=== PATIENT | female | born 1995 | race Caucasian/White ===

== ENCOUNTER 2022-02-03 13:25 | Emergency (ER) | payer BC, SELFPAY ==
[2022-02-03 13:26] VITALS: BP 124/64; PULSE 57; RESP 16; TEMP 36.6; O2SAT 100; BMI 22.2
[2022-02-03 14:07] LABS: Bacteria 0 SEEN /hpf (None Seen); Mucous, Urine 0 SEEN /hpf (<or=2+); Red Blood Cells-Urine 0 SEEN /hpf (0-5); Squamous Epithelial Cells - UA 0 SEEN /hpf (5-10); White Blood Cells 0 SEEN /hpf (0-5)
[2022-02-03 14:08] LABS: Absolute Lymphocyte Count 1.95 X10^3/uL (0.83-4.51); Absolute Neutrophil Count 3.3 X10^3/uL (2.0-7.7); Basophil# 0.01 X10^3/uL; Basophil% 0.2 % (0-1); Eosinophil# 0.04 X10^3/uL; Eosinophils% 0.7 % (0-5); Hematocrit 39.2 % (37-47); Hemoglobin 13.1 g/dL (12.0-15.0); Lymphocyte # 1.95 X10^3/ul (0.83-4.51); Lymphocyte % 34.2 % (19-41); Mean Corp Hgb Conc 33.4 g/dL (32-36); Mean Corpuscular Hgb 32.5 pg (27.0-32.0); Mean Corpuscular Volume 97.3 fL (81-99); Mean Platelet Vol. 10.5 fl (6.2-12.0); Monocyte# 0.41 X10^3/uL; Monocyte% 7.2 % (0-10); NRBC Flagged by Analyzer 0 % (0-5); Neutrophil # 3.28 X10^3/uL (2.7-7.7); Neutrophil % 57.5 % (47-70); Platelet Count 233 K/mm3 (150-450); RBC Distribution Width CV 11.1 % (11.6-14.6); RBC Distribution Width SD 39.9 fl (35.1-43.9); Red Blood Count 4.03 M/mm3 (4.2-5.4); White Blood Count 5.7 K/mm3 (4.4-11.0)
[2022-02-03 14:09] LABS: Color, Urine Yellow (Yellow); Glucose, Dipstick Normal (Normal); Ketone-Dipstick 50 mg/dl (Negative); Leukocyte Esterase-Dipstick Negative /ul (Negative); Nitrite-Dipstick Negative (Negative); Occult Blood-Urine Negative /ul (Negative); Protein-Dipstick Negative (Negative); Specific Gravity, Urine 1.015 (1.002-1.030); Urine Bilirubin Dipstick Negative (Negative); Urine Clarity Clear (Clear); Urine Urobilinogen Normal (Normal)
[2022-02-03 14:22] LABS: Anion Gap 9 (5-15); BUN 11 mg/dL (7-18); BUN/Creat Ratio 17.4 RATIO (10-20); Calcium,Total 9.2 mg/dL (8.5-10.1); Chloride 103 mmol/L (98-107); Creatinine, Serum 0.63 mg/dL (0.55-1.02); EST Glomerular Filtration Rate 123 mL/min (>60); Est Glom Filt Rate - Afr Amer 148 mL/min (>60); Glucose 89 mg/dL (74-106); Potassium 3.6 mmol/L (3.5-5.1); Sodium Level 140 mmol/L (136-145)
[2022-02-03 14:23] LABS: Internal QC Validated? YES +Cl - CLEAR BKGD; Pregnancy, Serum, hCG Quali. NEGATIVE Negative
--- NOTE | 2022-02-03 14:39 | CT_ITS ---
STUDY: CT ABDOMEN AND PELVIS WITH CONTRAST REASON FOR EXAM: Female, 26 years old. Right lower quadrant and right flank pain. Diarrhea. RADIATION DOSAGE (If Supplied By Facility): CTDIvol = ( 9.32 ) mGy, DLP = ( 443.03 ) mGycm TECHNIQUE: Transaxial images were obtained from the dome of the diaphragm to the symphysis pubis without oral contrast. IV 100mL Isovue-300 was administered. Sagittal and coronal images were reconstructed. Individualized dose optimization techniques were used for this CT. COMPARISON: None. FINDINGS: The visualized lung bases are unremarkable. The visualized portions of the heart are within normal limits. Normal liver. Normal gallbladder and extrahepatic biliary system. Normal spleen. Normal pancreas. Normal bilateral adrenal glands. Normal right kidney. Normal left kidney. There is a small hiatal hernia. Normal small intestine. Findings suggestive of colitis of the transverse colon. The appendix is visualized and appears normal. Normal abdominal aorta. Normal inferior vena cava. Normal retroperitoneum. Multiple small lymph nodes are seen in the mesenteric fat of the root of the mesentery. Normal urinary bladder. There is a 4.9 cm x 4.4 cm cyst in the left ovary. There is a 2.9 cm x 2.6 m cyst in the right ovary. Normal abdominal wall. Normal osseous structures. CT/Abdomen/Pelvis W IV Cont ONLY IMPRESSION: Findings suggestive of colitis of the transverse colon. Bilateral ovarian cysts more prominent on the left side. Electronically Signed: New Naylor MD at 15:05 EDT ,
--- NOTE | 2022-02-03 14:42 | EDS_ITS ---
HPI HPI - GI History of Present Illness Chief Complaint: Flank Pain Informant: patient Abdominal Pain/Flank Pain Onset: Days Context: Gradual Onset Timing: Intermittent Quality: Aching Location: RLQ Current Severity: Mild Maximum Severity: Mild Worsened by: Nothing Relieved by: Nothing Nausea/Vomiting/Emesis GI Symptom: Negative for Nausea or Vomiting Diarrhea/Melena/Hematochezia GI Symptom: Positive for Diarrhea; Negative for Melena or Hematochezia Stool Quality: Positive for Loose Associated Symptoms Associated Symptoms: Negative for Dysuria, Frequency or Hematuria Narrative Narrative: 26-year-old female no seen past medical or surgical history. Scad right flank or right lower quadrant abdominal pain since Thursday. She denies any nausea or vomiting. She denies any fever or chills. She denies any dysuria. No vaginal bleeding or discharge. She has never had a kidney stone. She denies any injury or trauma. She did go wakeboarding but that was 2 weekends ago and has not had pain until this past Thursday. She did have mild diarrhea the other day. Denies any melena. Prior similar symptoms: No Recent Illness/Hospitalization: No PFSH PFSH Medical History no medical history no medical history Home Medications NK 02/03/22 [History Last Taken Unknown] Allergy/AdvReac Type Severity Reaction Status Date / Time No Known Allergies Allergy Verified 02/03/22 13:25 Surgical History no surgical history no surgical history Social History Smoking Status: Never smoker ROS ROS ED ROS Narrative Right lower quad abdominal pain. Diarrhea. Review of Systems ROS Unobtainable: Denies due to encephalopathy Constitutional Constitutional ED: Denies chills or fever(s) ENT ENT ED: Denies ear pain Cardiovascular Cardiovascular: Denies chest pain Respiratory/Chest Respiratory/Chest: Denies cough Gastrointestinal Gastrointestinal: Reports abdominal pain and diarrhea; Denies constipation, melena, nausea or vomiting Genitourinary Genitourinary ED: Denies dysuria or hematuria Musculoskeletal Musculoskeletal: Denies arthralgias Integumentary Denies abscess Neurologic Neurologic: Denies headache(s) Psychiatric Psychiatric: Denies anxiety Endocrine Endocrinology: Denies polydipsia Hematologic/Lymphatic Hematologic/Lymphatic: Denies easy bleeding Allergic/Immunologic Allergic/Immunologic ED: Denies mouth swelling EXAM Physical Exam Narrative Exam Narrative: 22-year-old female no acute distress vital signs stable afebrile. Mom at bedside. HEENT exam unremarkable. Neck nontender. Lungs clear to auscultation. Heart regular rhythm rate about 60 no murmur. Abdomen soft nontender nondistended normal bowel sounds no peritoneal signs. No hernia or mass. She points to her right lower quadrant region slightly more medial than McBurney's point but there is no reproducible pain. No hernia or mass. Right upper quadrant is unremarkable. Back nontender. Weakness moves all 4 extremities. Nontender no edema. Neurologically she is awake and alert. Const Vital Signs: 02/03/22 13:26 02/03/22 16:41 Temperature 97.8 F Temperature Source Temporal Pulse Rate 57 L 67 Respiratory Rate 16 15 Blood Pressure 124/64 H 135/74 H Blood Pressure Mean 84 94 Pulse Ox 100 97 Oxygen Delivery Method Room Air Room Air Positive well nourished and well developed; Negative for obese, cachectic, contractures or unkempt General Appearance ED: well developed; Negative for unkempt, cachectic, contractures or pallor Nutritional Appearance: Negative for cachectic or obese HEENT Reports moist mucous membranes normocephalic and atraumatic; Negative for trauma or tenderness Eyes PERRL and EOMs intact bilaterally General Eye ED: Negative for pale conjunctiva or scleral icterus Neck no lymphadenopathy, supple and no JVD General: Negative for tenderness Carotids: Negative for other Lymph Lymphatic: other Resp normal respiratory effort and clear to auscultation bilaterally Effort and Inspection: Negative for respiratory distress Auscultation: Negative for rales, rhonchi or wheezes Cardio regular rate, regular rhythm, S1 normal heart sound, S2 normal heart sound and no murmurs Rate: Negative for bradycardia Rhythm: Negative for abnormal rhythm GI non-tender, non-distended and no masses Inspection: Negative for abdominal distention Auscultation: normoactive bowel sounds; Negative for hyperactive bowel sounds or hypoactive bowel sounds Palpation: soft; Negative for tender, guarding or rigid Back/Spine no CVA tenderness General Back: Negative for CVA tenderness Cervical Spine: Negative for cervical spine tenderness Thoracic Spine / Upper Back: Negative for thoracic spinal tenderness Lumbar Spine / Lower Back: Negative for lumbar spinal tenderness Extremity full ROM General Extremety ED: Negative for edema or tenderness General Extremity: Negative for edema Neuro moves all extremities Sensorium / Orientation: alert, oriented to person, oriented to place and oriented to time; Negative for orientation impaired, confused, lethargic or stuporous Motor Exam: strength 5/5 throughout Psych Appearance: Negative for unkempt Attitude: No agitated Mood & Affect: Negative for depressed Skin General Skin Exam: Negative for jaundice or pallor Lesions: no lesions Rashes: no rashes Trauma: Negative for abrasion Nails: Negative for discolored MDM MDM MDM Narrative Medical decision making narrative: 26-year-old with right lower quadrant abdominal pain. Benign exam completely nontender. Negative CBC. Negative chemistries and negative test. UA negative. CT abdomen pelvis to be obtained. Repeat exam patient doing well abdomen benign. We went over her test results. Pain may be from the 2 small ovarian cyst versus a mild colitis. She will be discharged home. Motrin and Tylenol for pain. Follow-up with her SPRAY PAINTING MACHINE OPERATOR as needed. Lab Data Attestation: I reviewed the patient's lab results. Lab results narrative: CBC normal white count of 5. H&H of 13 and 39. Electrolytes gap of 9. Normal BUN and creatinine. Normal glucose. Serum test negative. UA negative. CAT scan shows ovarian cyst. Mild colitis. Read to the radiologist. Labs: Laboratory Results - last 24 hr 02/03/22 02/03/22 02/03/22 13:44 13:44 13:44 WBC 5.7 RBC 4.03 L Hgb 13.1 Hct 39.2 MCV 97.3 MCH 32.5 H MCHC 33.4 RDW Std Deviation 39.9 RDW Coeff of Sun 11.1 L Plt Count 233 MPV 10.5 Immature Gran % (Auto) 0.200 Neut % (Auto) 57.5 Lymph % (Auto) 34.2 [place] % (Auto) 7.2 Eos % (Auto) 0.7 Baso % (Auto) 0.2 Absolute Neuts (auto) 3.3 Absolute Lymphs (auto) 1.95 Nucleated RBC % 0 Sodium 140 Potassium 3.6 Chloride 103 Carbon Dioxide 28.0 Anion Gap 9 BUN 11 Creatinine 0.63 Estim Creat Clear Calc 143.90 Est GFR (MDRD) Af Amer 148 Est GFR (MDRD) Non-Af 123 BUN/Creatinine Ratio 17.4 Glucose 89 Calcium 9.2 Serum , Qual NEGATIVE Urine Color Urine Clarity Urine pH Ur Specific [place] Urine Protein Urine Glucose (UA) Urine Ketones Urine Occult Blood Urine Nitrite Urine Bilirubin Urine Urobilinogen Ur Leukocyte Esterase Urine RBC Urine WBC Ur Squamous Epith Cells Urine Bacteria Urine Mucus 02/03/22 13:50 WBC RBC Hgb Hct MCV MCH MCHC RDW Std Deviation RDW Coeff of Sun Plt Count MPV Immature Gran % (Auto) Neut % (Auto) Lymph % (Auto) [place] % (Auto) Eos % (Auto) Baso % (Auto) Absolute Neuts (auto) Absolute Lymphs (auto) Nucleated RBC % Sodium Potassium Chloride Carbon Dioxide Anion Gap BUN Creatinine Estim Creat Clear Calc Est GFR (MDRD) Af Amer Est GFR (MDRD) Non-Af BUN/Creatinine Ratio Glucose Calcium Serum , Qual Urine Color Yellow Urine Clarity Clear Urine pH 6.0 Ur Specific [place] 1.015 Urine Protein Negative Urine Glucose (UA) Normal Urine Ketones 50 H Urine Occult Blood Negative Urine Nitrite Negative Urine Bilirubin Negative Urine Urobilinogen Normal Ur Leukocyte Esterase Negative Urine RBC 0 SEEN Urine WBC 0 SEEN Ur Squamous Epith Cells 0 SEEN Urine Bacteria 0 SEEN Urine Mucus 0 SEEN Radiography Diagnostic Testing: Clinical Impression(s) from Imaging Studies Abdomen/Pelvis CT 02/03/22 14:39 IMPRESSION: Findings suggestive of colitis of the transverse colon. Bilateral ovarian cysts more prominent on the left side. Electronically Signed: New Naylor MD at 15:05 EDT Reading Location ID and State: [address] [place] [address] , Service support , Discharge Plan Triage Chief Complaint: Flank Pain Other Complaint: Abd Pain ED Provider: Bernardino Chavez Dx/Rx/DC Orders Clinical Impression: Abdominal pain, Ovarian cyst Instructions: Abdominal Pain, ED Ovarian Cyst Prescriptions: No Action NK Primary Care Provider: Care Physician,No Primary Referrals: Shannan Zaragoza DO [STAFF PHYSICIAN] - As Needed Care Physician,No Primary [Primary Care Provider] - Activity Restrictions/Additional Instructions: Your pain may be due to the small ovarian cyst. These come and go throughout the menstrual cycle. Motrin and Tylenol for pain. If not improving follow-up with either your SPRAY PAINTING MACHINE OPERATOR or the 1 that was on-call today we referred you to. Disposition Disposition: Home, Self Care
[2022-02-03 16:41] VITALS: BP 135/74; PULSE 67; RESP 15; O2SAT 97
[2022-02-03 18:09] VITALS: BP 108/64; PULSE 71; RESP 15; O2SAT 98
== END 2022-02-03 18:10 | disposition home or self-care (01) ==
PROVIDERS: Emergency Provider Emergency Medicine; Visit Provider Emergency Medicine
DX: R10.31 Right lower quadrant pain (principal); N83.209 Unspecified ovarian cyst, unspecified side
CPT/HCPCS: 74177; 80048; 81001; 84703; 85025; 99283; Q9967; A4216